=== PATIENT | female | born 1945 | race Caucasian/White ===

== ENCOUNTER 2020-09-26 15:16 | Inpatient (IN) ==
[2020-09-26 16:01] LABS: Basophils % 0.3 %; Eosinophils # 0.1 K/mcL (0.0-0.6); Hematocrit 42.9 % (35.3-44.9); Hemoglobin 12.7 g/dL (11.5-15.4); Immature Granulocytes % 0.2 % (0-4); Lymphocytes # 0.7 K/mcL (0.6-4.6); Lymphocytes % 12.1 %; Mean Corpuscular HGB Conc 29.6 g/dL (31.6-35.5); Mean Corpuscular Hemoglobin 28.3 pg (28.0-33.3); Mean Corpuscular Volume 95.5 fL (83.0-100.0); Mean Platelet Volume 11.1 fL (9.4-12.4); Monocytes # 0.6 K/mcL (0.0-1.3); Neutrophils # 4.8 K/mcL (1.6-8.9); Platelet Count 148 K/mcL (140-400); Red Blood Count 4.49 M/mcL (3.82-4.97); Red Cell Distribution Width 13.5 % (11.5-14.5); Segmented Neutrophils % 77.4 %; White Blood Count 6.1 K/mcL (4.3-11.1)
[2020-09-26 16:24] LABS: Clarity,Urine Clear (Clear); Color,Urine Orange (Yellow)
[2020-09-26 16:26] LABS: Calcium 9.1 mg/dL (8.6-10.3); Chloride 89 mEq/L (98-107); Glucose 257 mg/dL (70-105); Potassium 4.2 mEq/L (3.5-5.1); Sodium 139 mEq/L (136-145)
[2020-09-26 16:26] LABS: Bacteria,Urine Few per hpf (None-Few); Squamous Epithelial Cell,Urine Few per hpf (None-Few); WBC,Urine 0-3 per hpf (0-3)
[2020-09-26 16:27] LABS: Carbon Dioxide > 45 mEq/L (23-29)
[2020-09-26 16:28] LABS: Troponin I 0.07 ng/mL (< 0.04)
[2020-09-26 16:41] LABS: BUN/Creatinine Ratio 24 (6-26); Blood Urea Nitrogen 16 mg/dL (8-23); Osmolality,Calculated 298 (280-300); eGFR For African Americans > 60 (> 60); eGFR For Non-African Americans > 60 (> 60)
[2020-09-26] MEDS ORDERED: Furosemide 40 MG/4 ML VIAL IVP ONE (16:46)
[2020-09-26] MEDS ORDERED: Aspirin 81 MG TAB.CHEW PO ONE (16:46)
[2020-09-26] MEDS ORDERED: Ondansetron 4 MG/2 ML VIAL IVP PRN (17:35)
[2020-09-26] MEDS ORDERED: Naloxone 0.4 MG/ML INJ IVP PRN (17:35)
[2020-09-26] MEDS ORDERED: D5% in Water 1,000 ML IVC PRN (18:23)
[2020-09-26] MEDS ORDERED: Dextrose Gel 15 GM/37.5 ML TUBE PO PRN ×2 (18:23)
[2020-09-26] MEDS ORDERED: *HR* Dextrose 50 % in Water (Vial) 50 ML VIAL IVP PRN (18:23)
[2020-09-26 18:33] LABS: Adenovirus Not Detected (Not Detect); Bordetella Pertussis Not Detected (Not Detect); Chlamydophila pneumoniae Not Detected (Not Detect); Coronavirus 229E Not Detected (Not Detect); Coronavirus HKU1 Not Detected (Not Detect); Coronavirus NL63 Not Detected (Not Detect); Coronavirus OC43 Not Detected (Not Detect); Human Metapneumovirus Not Detected (Not Detect); Human Rhinovirus/Enterovirus Not Detected (Not Detect); Influenza A Subtype 2009 H1 Not Detected (Not Detect); Influenza B Not Detected (Not Detect); Mycoplasma pneumoniae Not Detected (Not Detect); Parainfluenza Virus 1 Not Detected (Not Detect); Parainfluenza Virus 2 Not Detected (Not Detect); Parainfluenza Virus 3 Not Detected (Not Detect); Parainfluenza Virus 4 Not Detected (Not Detect); Respiratory Syncytial Virus Not Detected (Not Detect); SARS-CoV-2 Not Detected (Not Detect)
[2020-09-26] MEDS ORDERED: Perflutren Lipid Microsphere 1.3 ML in 0.9 % Sodium Chloride 8.7 ML IVP PRN (18:34)
[2020-09-26 19:09] LABS: VBG HCO3 61 mEq/L (21-27); VBG PCO2 75 mmHg (41-51); VBG PH 7.52 pH Units (7.32-7.42); VBG PO2 171 mmHg (25-50)
[2020-09-26] MEDS ORDERED: acetaZOLAMIDE 250 MG in Water for inj. (sterile) 2.5 ML IVP ONE (19:11)
[2020-09-26] MEDS: Ipratropium/Albuterol Neb 3 ML IH SCH ×2 (19:52→20:00)
[2020-09-26] MEDS: Budesonide/Formoterol 160/4.5 1 PUFF INH IH SCH (19:53)
[2020-09-26] MEDS: Insulin LISPRO 300 UNITS/3 ML VIAL SUBQ SCH (20:32)
[2020-09-26] MEDS: *HR* Heparin 5,000 UNIT/ML VIAL SQ SCH (20:34)
[2020-09-26] MEDS: cefTRIAXone 1,000 MG in Water for inj. (sterile) 10 ML IVP SCH (20:34)
[2020-09-26] MEDS: Furosemide 40 MG/4 ML VIAL IVP SCH (20:39)
[2020-09-26 20:59] LABS: ABG Base Excess 26 mEq/L (-2 to 3); ABG HCO3 58 mEq/L (21-27); ABG Oxygen Saturation 82 % (95-98); ABG PCO2 97 mmHg (35-45); ABG PH 7.38 pH Units (7.32-7.45); ABG PO2 52 mmHg (85-104); ABG TCO2 > 50 mEq/L (20-26)
[2020-09-26 21:55] LABS: Estimated Average Glucose 206 mg/dl; Hemoglobin A1C 8.8 %
[2020-09-27] MEDS: Ipratropium/Albuterol Neb 3 ML IH SCH ×7 (00:09→23:06)
[2020-09-27 03:07] LABS: Basophils % 0.3 %; Eosinophils # 0.1 K/mcL (0.0-0.6); Eosinophils % 1.5 %; Hematocrit 42.9 % (35.3-44.9); Hemoglobin 12.7 g/dL (11.5-15.4); Immature Granulocytes % 0.1 % (0-4); Lymphocytes # 1.1 K/mcL (0.6-4.6); Lymphocytes % 15.5 %; Mean Corpuscular HGB Conc 29.6 g/dL (31.6-35.5); Mean Corpuscular Hemoglobin 27.9 pg (28.0-33.3); Mean Corpuscular Volume 94.1 fL (83.0-100.0); Mean Platelet Volume 11.3 fL (9.4-12.4); Monocytes # 0.7 K/mcL (0.0-1.3); Monocytes % 10.8 %; Neutrophils # 4.9 K/mcL (1.6-8.9); Platelet Count 177 K/mcL (140-400); Red Blood Count 4.56 M/mcL (3.82-4.97); Red Cell Distribution Width 13.3 % (11.5-14.5); Segmented Neutrophils % 71.8 %; White Blood Count 6.8 K/mcL (4.3-11.1)
[2020-09-27 03:35] LABS: BUN/Creatinine Ratio 20 (6-26); Blood Urea Nitrogen 18 mg/dL (8-23); Calcium 9.3 mg/dL (8.6-10.3); Carbon Dioxide > 45 mEq/L (23-29); Chloride 83 mEq/L (98-107); Glucose 148 mg/dL (70-105); Magnesium 1.7 mg/dL (1.6-2.6); Osmolality,Calculated 299 (280-300); Phosphorous 3.4 mg/dL (2.7-4.5); Potassium 3.2 mEq/L (3.5-5.1); Sodium 142 mEq/L (136-145); eGFR For African Americans > 60 (> 60); eGFR For Non-African Americans > 60 (> 60)
[2020-09-27 05:18] LABS: ABG Base Excess 24 mEq/L (-2 to 3); ABG HCO3 56 mEq/L (21-27); ABG Oxygen Saturation 92 % (95-98); ABG PCO2 101 mmHg (35-45); ABG PH 7.36 pH Units (7.32-7.45); ABG PO2 73 mmHg (85-104); ABG TCO2 > 50 mEq/L (20-26); Blood Gas Modality BiLevel; Blood Gas Pressure Support 7 cm H2O
[2020-09-27] MEDS: *HR* Heparin 5,000 UNIT/ML VIAL SQ SCH ×2 (05:45→16:54)
[2020-09-27] MEDS: Budesonide/Formoterol 160/4.5 1 PUFF INH IH SCH ×2 (07:48→20:12)
[2020-09-27] MEDS: cefTRIAXone 1,000 MG in Water for inj. (sterile) 10 ML IVP SCH (08:11)
[2020-09-27] MEDS: Aspirin Enteric Coated 81 MG Tablet PO SCH (08:11)
[2020-09-27] MEDS: lisinopriL 10 MG TABLET PO SCH (08:11)
[2020-09-27] MEDS: Fenofibrate 54 MG TABLET PO SCH (08:11)
[2020-09-27] MEDS: Furosemide 40 MG/4 ML VIAL IVP SCH ×2 (08:12→20:54)
[2020-09-27] MEDS: Insulin LISPRO 300 UNITS/3 ML VIAL SUBQ SCH ×4 (08:25→20:53)
[2020-09-27] MEDS: Azithromycin 500 MG in 0.9 % Sodium Chloride 250 ML IVPB SCH (09:51)
[2020-09-27] MEDS: Haloperidol Lactate 5 MG/ML VIAL IVP PRN ×2 (16:54→23:32)
[2020-09-27] MEDS: MethylPREDNISolone 40 MG/ML VIAL IVP SCH (17:17)
[2020-09-27] MEDS ORDERED: *HR* Metoprolol 5 MG/5 ML VIAL IVP ONE (23:23)
[2020-09-27] MEDS: Levalbuterol Neb 1.25 MG/3 ML IH SCH (23:26)
[2020-09-28] MEDS: MethylPREDNISolone 40 MG/ML VIAL IVP SCH ×3 (00:32→15:06)
[2020-09-28] MEDS ORDERED: *HR* Metoprolol 5 MG/5 ML VIAL IVP ONE ×2 (02:34→04:24)
[2020-09-28] MEDS: Levalbuterol Neb 1.25 MG/3 ML IH SCH ×5 (03:44→20:19)
[2020-09-28 04:21] LABS: ABG Base Excess 12 mEq/L (-2 to 3); ABG HCO3 41 mEq/L (21-27); ABG Oxygen Saturation 97 % (95-98); ABG PCO2 70 mmHg (35-45); ABG PH 7.38 pH Units (7.32-7.45); ABG PO2 94 mmHg (85-104); ABG TCO2 43 mEq/L (20-26)
[2020-09-28] MEDS ORDERED: 0.9 % Sodium Chloride 250 ML IV ONE ×2 (04:42→05:00)
[2020-09-28] MEDS: *HR* Heparin 5,000 UNIT/ML VIAL SQ SCH (04:45)
[2020-09-28] MEDS ORDERED: 0.9 % Sodium Chloride 250 ML ONE (05:00)
[2020-09-28] MEDS ORDERED: *HR* Metoprolol 5 MG/5 ML VIAL IVP PRN (06:00)
[2020-09-28 06:41] LABS: Basophils % 0.3 %; Hematocrit 46.9 % (35.3-44.9); Immature Granulocytes % 0.3 % (0-4); Lymphocytes # 0.2 K/mcL (0.6-4.6); Lymphocytes % 3.3 %; Mean Corpuscular HGB Conc 30.5 g/dL (31.6-35.5); Mean Corpuscular Hemoglobin 27.9 pg (28.0-33.3); Mean Corpuscular Volume 91.6 fL (83.0-100.0); Mean Platelet Volume 11.4 fL (9.4-12.4); Monocytes # 0.1 K/mcL (0.0-1.3); Monocytes % 0.7 %; Neutrophils # 6.6 K/mcL (1.6-8.9); Platelet Count 190 K/mcL (140-400); Red Blood Count 5.12 M/mcL (3.82-4.97); Red Cell Distribution Width 13.4 % (11.5-14.5); Segmented Neutrophils % 95.4 %; White Blood Count 6.9 K/mcL (4.3-11.1)
[2020-09-28 06:43] LABS: Hemoglobin 14.3 g/dL (11.5-15.4)
[2020-09-28 06:52] LABS: Calcium 8.9 mg/dL (8.6-10.3); Magnesium 1.7 mg/dL (1.6-2.6)
[2020-09-28] MEDS ORDERED: *HR* Heparin 5,000 UNIT/ML VIAL IVP PRN ×4 (07:49→19:03)
[2020-09-28] MEDS ORDERED: *HR* Heparin 5,000 UNIT/ML VIAL IVP ONE ×2 (07:49→19:03)
[2020-09-28] MEDS ORDERED: 0.9 % Sodium Chloride 250 ML IVC ONE (07:51)
[2020-09-28] MEDS: cefTRIAXone 1,000 MG in Water for inj. (sterile) 10 ML IVP SCH (07:54)
[2020-09-28] MEDS: Azithromycin 500 MG in 0.9 % Sodium Chloride 250 ML IVPB SCH (07:55)
[2020-09-28] MEDS: Aspirin Enteric Coated 81 MG Tablet PO SCH (07:56)
[2020-09-28] MEDS: lisinopriL 10 MG TABLET PO SCH (07:57)
[2020-09-28] MEDS: Fenofibrate 54 MG TABLET PO SCH (07:57)
[2020-09-28] MEDS ORDERED: Heparin 25,000UNIT/250ML 1/2NS 25,000 UNIT/250 ML IV.SOLN IVC SCH ×2 (08:00→19:15)
[2020-09-28] MEDS ORDERED: 0.9 % Sodium Chloride 1,000 ML IVC ONE ×2 (08:26→08:58)
[2020-09-28] MEDS ORDERED: Amiodarone Premix 360 MG/200 ML BAG IVC ONE (08:27)
[2020-09-28] MEDS ORDERED: Amiodarone Premix 150 MG/100 ML BAG IVPB ONE (08:27)
[2020-09-28] MEDS ORDERED: Isovue-370 500 ML BOTTLE IVP ONE ×2 (08:32→12:51)
[2020-09-28] MEDS: Norepinephrine 4 MG/254 ML IV.SOLN IVC SCH (09:01)
[2020-09-28 09:08] LABS: ABG Base Excess -10 mEq/L (-2 to 3); ABG HCO3 15 mEq/L (21-27); ABG Oxygen Saturation 99 % (95-98); ABG PCO2 28 mmHg (35-45); ABG PH 7.33 pH Units (7.32-7.45); ABG PO2 123 mmHg (85-104); ABG TCO2 16 mEq/L (20-26); Blood Gas VT 400 cc
[2020-09-28] MEDS ORDERED: Perflutren Lipid Microsphere 1.3 ML in 0.9 % Sodium Chloride 8.7 ML IVP PRN (09:26)
[2020-09-28 09:52] LABS: Hemoglobin 13.4 g/dL (11.5-15.4); Mean Corpuscular HGB Conc 30.5 g/dL (31.6-35.5); Mean Corpuscular Hemoglobin 28.1 pg (28.0-33.3); Mean Corpuscular Volume 92.2 fL (83.0-100.0); Mean Platelet Volume 11.6 fL (9.4-12.4); Platelet Count 157 K/mcL (140-400); Red Blood Count 4.77 M/mcL (3.82-4.97); Red Cell Distribution Width 13.5 % (11.5-14.5)
[2020-09-28 09:55] LABS: INR 1.1; Prothrombin Time 12.3 Seconds (9.4-12.1)
[2020-09-28 10:02] LABS: Heparin anti-factor XA UFH 1.6 IU/mL (0.30-0.70)
[2020-09-28] MEDS: Metoprolol XL (24 HR) Succ 50 MG TAB.ER.24H PO SCH ×2 (11:12→20:26)
[2020-09-28] MEDS: Insulin LISPRO 300 UNITS/3 ML VIAL SUBQ SCH ×4 (11:13→20:40)
[2020-09-28] MEDS ORDERED: Norepinephrine 4 MG/254 ML 0.9% NaCL IVC ONE (11:15)
[2020-09-28] MEDS ORDERED: *HR* LORazepam 2 MG/ML VIAL IVP ONE (12:23)
[2020-09-28] MEDS ORDERED: Water for inj. (sterile) 20 ML VIAL IV ONE (12:23)
[2020-09-28 13:43] LABS: Calcium 8.3 mg/dL (8.6-10.3); Potassium 4.2 mEq/L (3.5-5.1)
[2020-09-28 15:03] LABS: ABG Base Excess 13 mEq/L (-2 to 3); ABG HCO3 45 mEq/L (21-27); ABG Oxygen Saturation 94 % (95-98); ABG PCO2 98 mmHg (35-45); ABG PH 7.27 pH Units (7.32-7.45); ABG PO2 88 mmHg (85-104); ABG TCO2 48 mEq/L (20-26)
[2020-09-28] MEDS: Amiodarone Premix 360 MG/200 ML BAG IVC SCH (15:05)
[2020-09-28 16:33] LABS: ABG Base Excess 13 mEq/L (-2 to 3); ABG HCO3 44 mEq/L (21-27); ABG Oxygen Saturation 94 % (95-98); ABG PCO2 91 mmHg (35-45); ABG PO2 82 mmHg (85-104); ABG TCO2 47 mEq/L (20-26)
[2020-09-28 20:30] LABS: Hematocrit 40.8 % (35.3-44.9); Hemoglobin 12.3 g/dL (11.5-15.4); Mean Corpuscular HGB Conc 30.1 g/dL (31.6-35.5); Mean Corpuscular Hemoglobin 27.8 pg (28.0-33.3); Mean Corpuscular Volume 92.1 fL (83.0-100.0); Mean Platelet Volume 11.2 fL (9.4-12.4); Platelet Count 215 K/mcL (140-400); Red Blood Count 4.43 M/mcL (3.82-4.97); Red Cell Distribution Width 13.7 % (11.5-14.5)
[2020-09-28 20:34] LABS: White Blood Count 9.2 K/mcL (4.3-11.1)
[2020-09-28 20:39] LABS: Heparin anti-factor XA UFH 0.73 IU/mL (0.30-0.70)
[2020-09-28 20:40] LABS: Prothrombin Time 12.1 Seconds (9.4-12.1)
[2020-09-29] MEDS: Levalbuterol Neb 1.25 MG/3 ML IH SCH ×6 (00:09→20:24)
[2020-09-29] MEDS: MethylPREDNISolone 40 MG/ML VIAL IVP SCH ×4 (00:13→23:28)
[2020-09-29] MEDS: Amiodarone Premix 360 MG/200 ML BAG IVC SCH ×2 (02:27→13:45)
[2020-09-29 04:13] LABS: Basophils % 0.1 %; Hematocrit 39.6 % (35.3-44.9); Hemoglobin 11.9 g/dL (11.5-15.4); Immature Granulocytes % 0.5 % (0-4); Lymphocytes # 0.2 K/mcL (0.6-4.6); Lymphocytes % 2.4 %; Mean Corpuscular HGB Conc 30.1 g/dL (31.6-35.5); Mean Corpuscular Hemoglobin 28.4 pg (28.0-33.3); Mean Corpuscular Volume 94.5 fL (83.0-100.0); Monocytes # 0.2 K/mcL (0.0-1.3); Monocytes % 1.9 %; Neutrophils # 8.4 K/mcL (1.6-8.9); Platelet Count 195 K/mcL (140-400); Red Blood Count 4.19 M/mcL (3.82-4.97); Segmented Neutrophils % 95.1 %; White Blood Count 8.9 K/mcL (4.3-11.1)
[2020-09-29 04:35] LABS: Calcium 8.1 mg/dL (8.6-10.3); Magnesium 1.9 mg/dL (1.6-2.6); Phosphorous 6.9 mg/dL (2.7-4.5); Potassium 4.6 mEq/L (3.5-5.1)
[2020-09-29 04:41] LABS: ABG Base Excess 13 mEq/L (-2 to 3); ABG HCO3 46 mEq/L (21-27); ABG Oxygen Saturation 95 % (95-98); ABG PCO2 114 mmHg (35-45); ABG PH 7.21 pH Units (7.32-7.45); ABG PO2 96 mmHg (85-104); ABG TCO2 50 mEq/L (20-26); Blood Gas VT 480 cc
[2020-09-29] MEDS: FentaNYL (PF) 1,000 MCG/100 ML IV.SOLN IVC SCH ×3 (07:03→18:56)
[2020-09-29] MEDS: Azithromycin 500 MG in 0.9 % Sodium Chloride 250 ML IVPB SCH (08:14)
[2020-09-29] MEDS: Fenofibrate 54 MG TABLET PO SCH (08:15)
[2020-09-29] MEDS: cefTRIAXone 1,000 MG in Water for inj. (sterile) 10 ML IVP SCH (08:15)
[2020-09-29] MEDS: Metoprolol XL (24 HR) Succ 50 MG TAB.ER.24H PO SCH ×2 (08:16→19:32)
[2020-09-29] MEDS: Aspirin Enteric Coated 81 MG Tablet PO SCH (08:16)
[2020-09-29] MEDS: lisinopriL 10 MG TABLET PO SCH (08:16)
[2020-09-29] MEDS: Insulin LISPRO 300 UNITS/3 ML VIAL SUBQ SCH ×5 (08:23→23:42)
[2020-09-29] MEDS ORDERED: Artificial Tears SOLN 15 ML BOTTLE BOTH EYES PRN ×2 (08:46→10:33)
[2020-09-29] MEDS ORDERED: Insulin LISPRO 300 UNITS/3 ML VIAL SUBQ SCH ×3 (08:46→21:00)
[2020-09-29 09:00] LABS: ABG Base Excess 11 mEq/L (-2 to 3); ABG HCO3 34 mEq/L (21-27); ABG Oxygen Saturation 100 % (95-98); ABG PCO2 39 mmHg (35-45); ABG PH 7.55 pH Units (7.32-7.45); ABG PO2 431 mmHg (85-104); ABG TCO2 36 mEq/L (20-26); Blood Gas Modality ASSIST CONTROL; Blood Gas VT 480 cc
[2020-09-29] MEDS ORDERED: *HR* Midazolam HCl 5 MG/5 ML VIAL IVP ONE ×2 (11:17→12:45)
[2020-09-29] MEDS ORDERED: *HR* Etomidate 20 MG/10 ML AMPUL IVP ONE ×2 (11:17→12:45)
[2020-09-29] MEDS: Chlorhexidine Rinse 15 ML MOUTHWASH MM SCH ×3 (11:40→19:57)
[2020-09-29] MEDS: Pantoprazole 40 MG VIAL IVP SCH ×2 (11:40→19:57)
[2020-09-29] MEDS: Artificial Tears SOLN 15 ML BOTTLE BOTH EYES SCH ×8 (12:17→23:33)
[2020-09-29] MEDS: Norepinephrine 4 MG/254 ML IV.SOLN IVC SCH ×3 (14:27→23:26)
[2020-09-29] MEDS: Insulin DETEMIR 100 UNIT/ML X5UNITS SUBQ SCH (19:59)
[2020-09-29 23:45] LABS: Bilirubin,Urine Negative (Negative); Blood,Urine Negative (Negative); Clarity,Urine Clear (Clear); Color,Urine Light-Yellow (Yellow); Glucose,Urine (UA) Normal (Normal); Ketones,Urine Negative (Negative); Leukocyte Esterase,Urine Negative (Negative); Nitrite,Urine Negative (Negative); Protein,Urine Trace mg/dL (Neg-Trace); Specific Gravity,Urine > 1.030 (1.010-1.025); Urobilinogen,Urine Normal (Normal)
[2020-09-30] MEDS: Levalbuterol Neb 1.25 MG/3 ML IH SCH ×6 (00:22→20:08)
[2020-09-30] MEDS: FentaNYL (PF) 1,000 MCG/100 ML IV.SOLN IVC SCH ×4 (02:00→23:11)
[2020-09-30] MEDS: Amiodarone Premix 360 MG/200 ML BAG IVC SCH ×2 (02:34→14:35)
[2020-09-30] MEDS: Norepinephrine 4 MG/254 ML IV.SOLN IVC SCH ×3 (03:25→14:25)
[2020-09-30] MEDS: Artificial Tears SOLN 15 ML BOTTLE BOTH EYES SCH ×8 (03:35→23:34)
[2020-09-30] MEDS: Insulin LISPRO 300 UNITS/3 ML VIAL SUBQ SCH ×6 (03:59→23:45)
[2020-09-30 04:10] LABS: Calcium 8.6 mg/dL (8.6-10.3); Phosphorous 3.6 mg/dL (2.7-4.5); Potassium 4.1 mEq/L (3.5-5.1)
[2020-09-30 04:11] LABS: Basophils % 0.1 %; Hematocrit 36.7 % (35.3-44.9); Hemoglobin 11.2 g/dL (11.5-15.4); Immature Granulocytes % 0.4 % (0-4); Lymphocytes # 0.3 K/mcL (0.6-4.6); Lymphocytes % 2.2 %; Mean Corpuscular HGB Conc 30.5 g/dL (31.6-35.5); Mean Corpuscular Hemoglobin 27.7 pg (28.0-33.3); Mean Corpuscular Volume 90.6 fL (83.0-100.0); Mean Platelet Volume 11.6 fL (9.4-12.4); Monocytes # 0.3 K/mcL (0.0-1.3); Monocytes % 2.3 %; Neutrophils # 11.8 K/mcL (1.6-8.9); Platelet Count 228 K/mcL (140-400); Red Blood Count 4.05 M/mcL (3.82-4.97); White Blood Count 12.4 K/mcL (4.3-11.1)
[2020-09-30 04:36] LABS: ABG Base Excess 11 mEq/L (-2 to 3); ABG HCO3 40 mEq/L (21-27); ABG Oxygen Saturation 97 % (95-98); ABG PCO2 74 mmHg (35-45); ABG PH 7.34 pH Units (7.32-7.45); ABG PO2 96 mmHg (85-104); ABG TCO2 42 mEq/L (20-26); Blood Gas VT 350 cc
[2020-09-30] MEDS: Azithromycin 500 MG in 0.9 % Sodium Chloride 250 ML IVPB SCH (08:01)
[2020-09-30] MEDS: cefTRIAXone 1,000 MG in Water for inj. (sterile) 10 ML IVP SCH (08:02)
[2020-09-30] MEDS: Fenofibrate 54 MG TABLET PO SCH (08:03)
[2020-09-30] MEDS: Aspirin Enteric Coated 81 MG Tablet PO SCH (08:03)
[2020-09-30] MEDS: MethylPREDNISolone 40 MG/ML VIAL IVP SCH ×2 (08:03→17:32)
[2020-09-30] MEDS: Chlorhexidine Rinse 15 ML MOUTHWASH MM SCH ×3 (08:03→19:46)
[2020-09-30] MEDS: Pantoprazole 40 MG VIAL IVP SCH ×2 (08:03→19:46)
[2020-09-30] MEDS: Metoprolol XL (24 HR) Succ 50 MG TAB.ER.24H PO SCH (08:05)
[2020-09-30] MEDS: lisinopriL 10 MG TABLET PO SCH (08:05)
[2020-09-30] MEDS: Insulin DETEMIR 100 UNIT/ML X5UNITS SUBQ SCH (19:56)
[2020-10-01] MEDS: Levalbuterol Neb 1.25 MG/3 ML IH SCH ×3 (00:26→07:23)
[2020-10-01] MEDS: Amiodarone Premix 360 MG/200 ML BAG IVC SCH ×2 (02:37→12:09)
[2020-10-01 03:40] LABS: Basophils % 0.1 %; Eosinophils % 0.3 %; Hematocrit 34.7 % (35.3-44.9); Hemoglobin 10.5 g/dL (11.5-15.4); Immature Granulocytes % 0.4 % (0-4); Lymphocytes # 0.9 K/mcL (0.6-4.6); Lymphocytes % 8.9 %; Mean Corpuscular HGB Conc 30.3 g/dL (31.6-35.5); Mean Corpuscular Hemoglobin 27.9 pg (28.0-33.3); Mean Platelet Volume 11.1 fL (9.4-12.4); Monocytes # 1.1 K/mcL (0.0-1.3); Monocytes % 10.7 %; Neutrophils # 7.9 K/mcL (1.6-8.9); Platelet Count 156 K/mcL (140-400); Red Blood Count 3.77 M/mcL (3.82-4.97); Red Cell Distribution Width 14.5 % (11.5-14.5); Segmented Neutrophils % 79.6 %; White Blood Count 9.9 K/mcL (4.3-11.1)
[2020-10-01] MEDS: Insulin LISPRO 300 UNITS/3 ML VIAL SUBQ SCH ×6 (03:46→23:22)
[2020-10-01] MEDS: Artificial Tears SOLN 15 ML BOTTLE BOTH EYES SCH ×6 (03:47→23:21)
[2020-10-01 04:14] LABS: ABG Base Excess 13 mEq/L (-2 to 3); ABG HCO3 41 mEq/L (21-27); ABG Oxygen Saturation 97 % (95-98); ABG PCO2 72 mmHg (35-45); ABG PH 7.36 pH Units (7.32-7.45); ABG PO2 101 mmHg (85-104); ABG TCO2 43 mEq/L (20-26); Blood Gas VT 350 cc
[2020-10-01 04:40] LABS: BUN/Creatinine Ratio 47 (6-26); Blood Urea Nitrogen 43 mg/dL (8-23); Calcium 8.6 mg/dL (8.6-10.3); Carbon Dioxide 40 mEq/L (23-29); Chloride 99 mEq/L (98-107); Glucose 137 mg/dL (70-105); Magnesium 2.1 mg/dL (1.6-2.6); Osmolality,Calculated 311 (280-300); Phosphorous 2.3 mg/dL (2.7-4.5); Sodium 144 mEq/L (136-145); eGFR For African Americans > 60 (> 60); eGFR For Non-African Americans 59 (> 60)
[2020-10-01] MEDS: Norepinephrine 4 MG/254 ML IV.SOLN IVC SCH ×2 (05:56→20:53)
[2020-10-01] MEDS: FentaNYL (PF) 1,000 MCG/100 ML IV.SOLN IVC SCH ×2 (05:57→12:46)
[2020-10-01] MEDS: MethylPREDNISolone 40 MG/ML VIAL IVP SCH ×2 (06:26→17:30)
[2020-10-01] MEDS: Chlorhexidine Rinse 15 ML MOUTHWASH MM SCH ×2 (07:35→20:01)
[2020-10-01] MEDS: Azithromycin 500 MG in 0.9 % Sodium Chloride 250 ML IVPB SCH (07:36)
[2020-10-01] MEDS: Aspirin Enteric Coated 81 MG Tablet PO SCH (07:36)
[2020-10-01] MEDS: cefTRIAXone 1,000 MG in Water for inj. (sterile) 10 ML IVP SCH (07:36)
[2020-10-01] MEDS: Pantoprazole 40 MG VIAL IVP SCH ×2 (07:36→20:01)
[2020-10-01] MEDS: *HR* Amiodarone 200 MG TABLET GTUBE SCH (20:01)
[2020-10-01] MEDS: Docusate Oral Soln 100 MG/10 ML UDC GTUBE SCH (20:01)
[2020-10-01] MEDS: Insulin DETEMIR 100 UNIT/ML X5UNITS SUBQ SCH (20:14)
[2020-10-02] MEDS: FentaNYL (PF) 1,000 MCG/100 ML IV.SOLN IVC SCH (02:47)
[2020-10-02] MEDS: Artificial Tears SOLN 15 ML BOTTLE BOTH EYES SCH ×6 (03:35→23:20)
[2020-10-02] MEDS: Insulin LISPRO 300 UNITS/3 ML VIAL SUBQ SCH ×5 (03:38→22:28)
[2020-10-02 03:41] LABS: ABG Base Excess 12 mEq/L (-2 to 3); ABG HCO3 40 mEq/L (21-27); ABG Oxygen Saturation 94 % (95-98); ABG PCO2 75 mmHg (35-45); ABG PH 7.34 pH Units (7.32-7.45); ABG PO2 77 mmHg (85-104); ABG TCO2 42 mEq/L (20-26); Blood Gas Modality ASSIST CONTROL; Blood Gas VT 350 cc
[2020-10-02] MEDS: MethylPREDNISolone 40 MG/ML VIAL IVP SCH ×2 (05:39→18:39)
[2020-10-02 06:25] LABS: Hematocrit 33.9 % (35.3-44.9); Hemoglobin 10.1 g/dL (11.5-15.4); Immature Granulocytes % 0.3 % (0-4); Lymphocytes # 0.4 K/mcL (0.6-4.6); Lymphocytes % 4.9 %; Mean Corpuscular HGB Conc 29.8 g/dL (31.6-35.5); Mean Corpuscular Hemoglobin 28.5 pg (28.0-33.3); Mean Corpuscular Volume 95.8 fL (83.0-100.0); Mean Platelet Volume 12.8 fL (9.4-12.4); Monocytes # 0.6 K/mcL (0.0-1.3); Monocytes % 7.9 %; Neutrophils # 6.2 K/mcL (1.6-8.9); Platelet Count 123 K/mcL (140-400); Red Blood Count 3.54 M/mcL (3.82-4.97); Red Cell Distribution Width 14.3 % (11.5-14.5); Segmented Neutrophils % 86.9 %; White Blood Count 7.1 K/mcL (4.3-11.1)
[2020-10-02 06:32] LABS: BUN/Creatinine Ratio 49 (6-26); Blood Urea Nitrogen 39 mg/dL (8-23); Calcium 8.5 mg/dL (8.6-10.3); Carbon Dioxide 41 mEq/L (23-29); Chloride 98 mEq/L (98-107); Glucose 281 mg/dL (70-105); Magnesium 2.1 mg/dL (1.6-2.6); Osmolality,Calculated 314 (280-300); Sodium 142 mEq/L (136-145); eGFR For African Americans > 60 (> 60); eGFR For Non-African Americans > 60 (> 60)
[2020-10-02] MEDS: Chlorhexidine Rinse 15 ML MOUTHWASH MM SCH ×2 (07:51→22:18)
[2020-10-02] MEDS: cefTRIAXone 1,000 MG in Water for inj. (sterile) 10 ML IVP SCH (07:51)
[2020-10-02] MEDS: Docusate Oral Soln 100 MG/10 ML UDC GTUBE SCH ×2 (07:51→22:27)
[2020-10-02] MEDS: Pantoprazole 40 MG VIAL IVP SCH ×2 (07:51→22:24)
[2020-10-02] MEDS: Aspirin Enteric Coated 81 MG Tablet PO SCH (07:52)
[2020-10-02] MEDS: *HR* Amiodarone 200 MG TABLET GTUBE SCH ×2 (07:52→22:16)
[2020-10-02] MEDS ORDERED: Dexmedetomidine HCl 400 MCG/100 ML MLS IVC ONE (21:29)
[2020-10-02] MEDS: Dexmedetomidine HCl 400 MCG/100 ML MLS IVC SCH (21:35)
[2020-10-02] MEDS: Insulin DETEMIR 100 UNIT/ML X5UNITS SUBQ SCH (22:33)
[2020-10-03] MEDS: Insulin LISPRO 300 UNITS/3 ML VIAL SUBQ SCH ×7 (00:13→23:49)
[2020-10-03] MEDS: MethylPREDNISolone 40 MG/ML VIAL IVP SCH ×2 (06:39→16:42)
[2020-10-03] MEDS: *HR* Enoxaparin 40 MG/0.4 ML SYRINGE SQ SCH (06:41)
[2020-10-03 07:16] LABS: Hematocrit 32.7 % (35.3-44.9); Hemoglobin 9.8 g/dL (11.5-15.4); Mean Corpuscular Volume 95.3 fL (83.0-100.0); Red Blood Count 3.43 M/mcL (3.82-4.97); White Blood Count 5.6 K/mcL (4.3-11.1)
[2020-10-03 07:17] LABS: Immature Granulocytes % 0.4 % (0-4); Lymphocytes # 0.3 K/mcL (0.6-4.6); Mean Corpuscular Hemoglobin 28.6 pg (28.0-33.3); Mean Platelet Volume 11.7 fL (9.4-12.4); Monocytes # 0.6 K/mcL (0.0-1.3); Monocytes % 10.1 %; Neutrophils # 4.7 K/mcL (1.6-8.9); Platelet Count 116 K/mcL (140-400); Red Cell Distribution Width 48.2 % (11.5-14.5); Segmented Neutrophils % 84.5 %
[2020-10-03 09:33] LABS: BUN/Creatinine Ratio 47 (6-26); Blood Urea Nitrogen 32 mg/dL (8-23); Calcium 8.9 mg/dL (8.6-10.3); Carbon Dioxide 43 mEq/L (23-29); Chloride 99 mEq/L (98-107); Glucose 78 mg/dL (70-105); Magnesium 2.1 mg/dL (1.6-2.6); Osmolality,Calculated 302 (280-300); Phosphorous 2.7 mg/dL (2.7-4.5); Potassium 4.5 mEq/L (3.5-5.1); Sodium 143 mEq/L (136-145); eGFR For African Americans > 60 (> 60); eGFR For Non-African Americans > 60 (> 60)
[2020-10-03] MEDS: Docusate Oral Soln 100 MG/10 ML UDC GTUBE SCH ×2 (10:19→21:05)
[2020-10-03] MEDS: Chlorhexidine Rinse 15 ML MOUTHWASH MM SCH ×2 (10:19→21:04)
[2020-10-03] MEDS: Aspirin 81 MG TAB.CHEW PO SCH (10:19)
[2020-10-03] MEDS: *HR* Amiodarone 200 MG TABLET GTUBE SCH ×2 (10:19→21:08)
[2020-10-03] MEDS: Pantoprazole 40 MG VIAL IVP SCH ×2 (10:19→21:06)
[2020-10-03] MEDS: Furosemide 40 MG/4 ML VIAL IVP SCH ×2 (10:29→16:41)
[2020-10-03] MEDS: Nicotine 21 MG PATCH.TD24 TD SCH (16:41)
[2020-10-03] MEDS: Dexmedetomidine HCl 400 MCG/100 ML MLS IVC SCH (21:16)
[2020-10-03] MEDS: Insulin DETEMIR 100 UNIT/ML X5UNITS SUBQ SCH (21:25)
[2020-10-04] MEDS ORDERED: 0.9 % Sodium Chloride 250 ML ONE (00:24)
[2020-10-04] MEDS: Dexmedetomidine HCl 400 MCG/100 ML MLS IVC SCH (00:25)
[2020-10-04] MEDS: Insulin LISPRO 300 UNITS/3 ML VIAL SUBQ SCH ×5 (03:34→19:27)
[2020-10-04 04:36] LABS: Eosinophils % 0.1 %; Hematocrit 33.9 % (35.3-44.9); Hemoglobin 10.6 g/dL (11.5-15.4); Immature Granulocytes % 0.4 % (0-4); Lymphocytes # 0.5 K/mcL (0.6-4.6); Lymphocytes % 6.1 %; Mean Corpuscular HGB Conc 31.3 g/dL (31.6-35.5); Mean Corpuscular Hemoglobin 28.1 pg (28.0-33.3); Mean Corpuscular Volume 89.9 fL (83.0-100.0); Mean Platelet Volume 12.6 fL (9.4-12.4); Monocytes # 0.9 K/mcL (0.0-1.3); Neutrophils # 6.9 K/mcL (1.6-8.9); Platelet Count 117 K/mcL (140-400); Red Blood Count 3.77 M/mcL (3.82-4.97); Red Cell Distribution Width 13.6 % (11.5-14.5); Segmented Neutrophils % 82.4 %; White Blood Count 8.4 K/mcL (4.3-11.1)
[2020-10-04 05:09] LABS: BUN/Creatinine Ratio 42 (6-26); Blood Urea Nitrogen 36 mg/dL (8-23); Calcium 8.9 mg/dL (8.6-10.3); Carbon Dioxide > 45 mEq/L (23-29); Chloride 91 mEq/L (98-107); Glucose 129 mg/dL (70-105); Osmolality,Calculated 302 (280-300); Sodium 141 mEq/L (136-145); eGFR For African Americans > 60 (> 60); eGFR For Non-African Americans > 60 (> 60)
[2020-10-04] MEDS: MethylPREDNISolone 40 MG/ML VIAL IVP SCH (05:53)
[2020-10-04] MEDS: *HR* Enoxaparin 40 MG/0.4 ML SYRINGE SQ SCH (05:53)
[2020-10-04] MEDS: *HR* Amiodarone 200 MG TABLET GTUBE SCH (08:06)
[2020-10-04] MEDS: Furosemide 40 MG/4 ML VIAL IVP SCH ×2 (08:06→17:45)
[2020-10-04] MEDS: Pantoprazole 40 MG VIAL IVP SCH (08:07)
[2020-10-04] MEDS: Aspirin 81 MG TAB.CHEW PO SCH (08:07)
[2020-10-04] MEDS: Docusate Oral Soln 100 MG/10 ML UDC GTUBE SCH ×2 (08:07→19:36)
[2020-10-04] MEDS: Nicotine 21 MG PATCH.TD24 TD SCH (08:07)
[2020-10-04] MEDS: Aspirin Enteric Coated 81 MG Tablet PO SCH (09:34)
[2020-10-04] MEDS: *HR* Amiodarone 200 MG TABLET PO SCH ×2 (09:34→19:30)
[2020-10-04] MEDS: Budesonide/Formoterol 160/4.5 1 PUFF INH IH SCH ×2 (11:31→19:44)
[2020-10-04] MEDS: Insulin DETEMIR 100 UNIT/ML X5UNITS SUBQ SCH (12:14)
[2020-10-04] MEDS: predniSONE 20 MG TABLET PO SCH (12:14)
[2020-10-05] MEDS: Insulin LISPRO 300 UNITS/3 ML VIAL SUBQ SCH ×6 (00:04→20:11)
[2020-10-05 03:21] LABS: Basophils % 0.1 %; Eosinophils % 0.1 %; Hematocrit 35.4 % (35.3-44.9); Hemoglobin 10.9 g/dL (11.5-15.4); Immature Granulocytes % 0.2 % (0-4); Lymphocytes # 0.6 K/mcL (0.6-4.6); Lymphocytes % 6.7 %; Mean Corpuscular HGB Conc 30.8 g/dL (31.6-35.5); Mean Corpuscular Hemoglobin 28.2 pg (28.0-33.3); Mean Corpuscular Volume 91.5 fL (83.0-100.0); Mean Platelet Volume 12.6 fL (9.4-12.4); Monocytes % 10.5 %; Neutrophils # 7.8 K/mcL (1.6-8.9); Platelet Count 149 K/mcL (140-400); Red Blood Count 3.87 M/mcL (3.82-4.97); Red Cell Distribution Width 13.6 % (11.5-14.5); Segmented Neutrophils % 82.4 %; White Blood Count 9.5 K/mcL (4.3-11.1)
[2020-10-05 04:01] LABS: BUN/Creatinine Ratio 41 (6-26); Blood Urea Nitrogen 38 mg/dL (8-23); Calcium 8.2 mg/dL (8.6-10.3); Carbon Dioxide > 45 mEq/L (23-29); Chloride 91 mEq/L (98-107); Glucose 158 mg/dL (70-105); Magnesium 1.9 mg/dL (1.6-2.6); Osmolality,Calculated 306 (280-300); Phosphorous 3.3 mg/dL (2.7-4.5); Potassium 3.6 mEq/L (3.5-5.1); Sodium 142 mEq/L (136-145); eGFR For African Americans > 60 (> 60); eGFR For Non-African Americans 59 (> 60)
[2020-10-05] MEDS: *HR* Enoxaparin 40 MG/0.4 ML SYRINGE SQ SCH (05:01)
[2020-10-05] MEDS ORDERED: Magnesium Sulfate 1 GM/102 ML PIGGYBACK IVPB ONE (05:27)
[2020-10-05] MEDS: Budesonide/Formoterol 160/4.5 1 PUFF INH IH SCH ×3 (08:11→22:49)
[2020-10-05] MEDS: Nicotine 21 MG PATCH.TD24 TD SCH (08:41)
[2020-10-05] MEDS: Furosemide 40 MG/4 ML VIAL IVP SCH (08:41)
[2020-10-05] MEDS: Aspirin 81 MG TAB.CHEW PO SCH (08:42)
[2020-10-05] MEDS: Aspirin Enteric Coated 81 MG Tablet PO SCH (08:42)
[2020-10-05] MEDS: *HR* Amiodarone 200 MG TABLET PO SCH ×2 (08:43→19:58)
[2020-10-05] MEDS: Docusate Oral Soln 100 MG/10 ML UDC GTUBE SCH (08:43)
[2020-10-05] MEDS: predniSONE 20 MG TABLET PO SCH (08:43)
[2020-10-05] MEDS: Insulin DETEMIR 100 UNIT/ML X5UNITS SUBQ SCH (09:24)
[2020-10-05] MEDS ORDERED: Dextrose Gel 15 GM/37.5 ML TUBE PO PRN ×2 (12:22)
[2020-10-05] MEDS ORDERED: Naloxone 0.4 MG/ML INJ IVP PRN (12:22)
[2020-10-05] MEDS ORDERED: Ondansetron 4 MG/2 ML VIAL IVP PRN (12:22)
[2020-10-05] MEDS ORDERED: D5% in Water 1,000 ML IVC PRN (12:22)
[2020-10-05] MEDS ORDERED: *HR* Dextrose 50 % in Water (Vial) 50 ML VIAL IVP PRN (12:22)
[2020-10-05] MEDS ORDERED: *HR* Metoprolol 5 MG/5 ML VIAL IVP PRN (12:22)
[2020-10-05] MEDS: Docusate Oral Soln 100 MG/10 ML UDC PO SCH (19:58)
[2020-10-06 03:16] LABS: VBG Ionized Calcium 1.06 mmol/L (1.15-1.35)
[2020-10-06 03:25] LABS: Basophils % 0.1 %; Eosinophils # 0.1 K/mcL (0.0-0.6); Eosinophils % 1.1 %; Hematocrit 37.3 % (35.3-44.9); Hemoglobin 11.6 g/dL (11.5-15.4); Immature Granulocytes % 0.3 % (0-4); Lymphocytes # 1.3 K/mcL (0.6-4.6); Lymphocytes % 12.4 %; Mean Corpuscular HGB Conc 31.1 g/dL (31.6-35.5); Mean Corpuscular Hemoglobin 28.3 pg (28.0-33.3); Mean Platelet Volume 12.4 fL (9.4-12.4); Monocytes # 1.1 K/mcL (0.0-1.3); Neutrophils # 8.2 K/mcL (1.6-8.9); Platelet Count 182 K/mcL (140-400); Red Cell Distribution Width 13.5 % (11.5-14.5); Segmented Neutrophils % 76.1 %; White Blood Count 10.8 K/mcL (4.3-11.1)
[2020-10-06 03:43] LABS: Alanine Aminotransferase 13 Units/L (7-52); Albumin 3.1 g/dL (3.5-5.7); Albumin/Globulin Ratio 1.2 (1.1-2.2); Alkaline Phosphatase 48 Units/L (34-104); Aspartate Amino Transferase 15 Units/L (13-39); BUN/Creatinine Ratio 37 (6-26); Bilirubin,Total 0.5 mg/dL (0.3-1.0); Blood Urea Nitrogen 32 mg/dL (8-23); Calcium 8.5 mg/dL (8.6-10.3); Carbon Dioxide > 45 mEq/L (23-29); Chloride 92 mEq/L (98-107); Globulin 2.5 g/dL (2.4-3.5); Glucose 83 mg/dL (70-105); Osmolality,Calculated 304 (280-300); Phosphorous 3.2 mg/dL (2.7-4.5); Potassium 3.2 mEq/L (3.5-5.1); Sodium 144 mEq/L (136-145); Total Protein 5.6 g/dL (6.4-8.9); eGFR For African Americans > 60 (> 60); eGFR For Non-African Americans > 60 (> 60)
[2020-10-06] MEDS: *HR* Enoxaparin 40 MG/0.4 ML SYRINGE SQ SCH (05:33)
[2020-10-06] MEDS: Budesonide/Formoterol 160/4.5 1 PUFF INH IH SCH ×2 (07:26→19:59)
[2020-10-06] MEDS: predniSONE 20 MG TABLET PO SCH (08:02)
[2020-10-06] MEDS: *HR* Amiodarone 200 MG TABLET PO SCH ×2 (08:02→19:35)
[2020-10-06] MEDS: Aspirin Enteric Coated 81 MG Tablet PO SCH (08:02)
[2020-10-06] MEDS: Nicotine 21 MG PATCH.TD24 TD SCH (08:03)
[2020-10-06] MEDS: Docusate Oral Soln 100 MG/10 ML UDC PO SCH ×2 (08:03→19:35)
[2020-10-06] MEDS: Insulin LISPRO 300 UNITS/3 ML VIAL SUBQ SCH ×4 (08:04→19:39)
[2020-10-06] MEDS: Insulin DETEMIR 100 UNIT/ML X5UNITS SUBQ SCH (08:04)
[2020-10-06] MEDS ORDERED: Furosemide 40 MG/4 ML VIAL IVP SCH (09:00)
[2020-10-07 04:30] LABS: VBG HCO3 49 mEq/L (21-27); VBG PCO2 87 mmHg (41-51); VBG PH 7.36 pH Units (7.32-7.42); VBG PO2 144 mmHg (25-50)
[2020-10-07 05:04] LABS: BUN/Creatinine Ratio 33 (6-26); Blood Urea Nitrogen 39 mg/dL (8-23); Calcium 8.2 mg/dL (8.6-10.3); Carbon Dioxide > 45 mEq/L (23-29); Chloride 94 mEq/L (98-107); Glucose 110 mg/dL (70-105); Magnesium 1.9 mg/dL (1.6-2.6); Osmolality,Calculated 306 (280-300); Potassium 3.8 mEq/L (3.5-5.1); Sodium 143 mEq/L (136-145); eGFR For African Americans 54 (> 60); eGFR For Non-African Americans 45 (> 60)
[2020-10-07] MEDS: *HR* Enoxaparin 40 MG/0.4 ML SYRINGE SQ SCH (05:54)
[2020-10-07] MEDS: Budesonide/Formoterol 160/4.5 1 PUFF INH IH SCH ×2 (07:27→19:52)
[2020-10-07] MEDS: Insulin LISPRO 300 UNITS/3 ML VIAL SUBQ SCH ×4 (08:11→20:23)
[2020-10-07] MEDS: Aspirin Enteric Coated 81 MG Tablet PO SCH (08:12)
[2020-10-07] MEDS: Nicotine 21 MG PATCH.TD24 TD SCH (08:12)
[2020-10-07] MEDS: Furosemide 20 MG TABLET PO SCH (08:12)
[2020-10-07] MEDS: predniSONE 20 MG TABLET PO SCH (08:12)
[2020-10-07] MEDS: *HR* Amiodarone 200 MG TABLET PO SCH ×2 (08:12→19:55)
[2020-10-07] MEDS: Docusate Oral Soln 100 MG/10 ML UDC PO SCH ×2 (08:12→19:55)
[2020-10-07] MEDS: Insulin DETEMIR 100 UNIT/ML X5UNITS SUBQ SCH (08:13)
[2020-10-07] MEDS: Ipratropium/Albuterol Neb 3 ML IH SCH ×5 (09:48→23:37)
[2020-10-07 13:19] LABS: VBG HCO3 45 mEq/L (21-27); VBG PCO2 88 mmHg (41-51); VBG PH 7.31 pH Units (7.32-7.42); VBG PO2 70 mmHg (25-50)
[2020-10-08 02:56] LABS: Hematocrit 35.1 % (35.3-44.9); Hemoglobin 10.2 g/dL (11.5-15.4); Mean Corpuscular HGB Conc 29.1 g/dL (31.6-35.5); Mean Corpuscular Hemoglobin 27.3 pg (28.0-33.3); Mean Corpuscular Volume 93.9 fL (83.0-100.0); Mean Platelet Volume 12.1 fL (9.4-12.4); Platelet Count 210 K/mcL (140-400); Red Blood Count 3.74 M/mcL (3.82-4.97); Red Cell Distribution Width 13.7 % (11.5-14.5); White Blood Count 10.9 K/mcL (4.3-11.1)
[2020-10-08 02:58] LABS: BUN/Creatinine Ratio 42 (6-26); Blood Urea Nitrogen 34 mg/dL (8-23); Calcium 8.6 mg/dL (8.6-10.3); Carbon Dioxide 42 mEq/L (23-29); Chloride 96 mEq/L (98-107); Glucose 81 mg/dL (70-105); Magnesium 1.5 mg/dL (1.6-2.6); Osmolality,Calculated 303 (280-300); Potassium 3.5 mEq/L (3.5-5.1); Sodium 143 mEq/L (136-145); eGFR For African Americans > 60 (> 60); eGFR For Non-African Americans > 60 (> 60)
[2020-10-08] MEDS: Ipratropium/Albuterol Neb 3 ML IH SCH ×6 (04:10→23:40)
[2020-10-08] MEDS: *HR* Enoxaparin 40 MG/0.4 ML SYRINGE SQ SCH (05:18)
[2020-10-08] MEDS: Budesonide/Formoterol 160/4.5 1 PUFF INH IH SCH ×2 (07:28→19:48)
[2020-10-08] MEDS: Furosemide 20 MG TABLET PO SCH (07:52)
[2020-10-08] MEDS: predniSONE 20 MG TABLET PO SCH (07:52)
[2020-10-08] MEDS: *HR* Amiodarone 200 MG TABLET PO SCH ×2 (07:52→20:09)
[2020-10-08] MEDS: Nicotine 21 MG PATCH.TD24 TD SCH (07:53)
[2020-10-08] MEDS: Insulin DETEMIR 100 UNIT/ML X5UNITS SUBQ SCH (07:53)
[2020-10-08] MEDS: Docusate Oral Soln 100 MG/10 ML UDC PO SCH ×2 (07:53→20:09)
[2020-10-08] MEDS: Aspirin Enteric Coated 81 MG Tablet PO SCH (07:53)
[2020-10-08] MEDS: Insulin LISPRO 300 UNITS/3 ML VIAL SUBQ SCH ×4 (08:13→20:09)
[2020-10-08] MEDS: GuaiFENesin/Dextromethorphan TABLET PO SCH ×2 (10:17→20:09)
[2020-10-08 18:59] LABS: Bilirubin,Urine Negative (Negative); Blood,Urine Negative (Negative); Clarity,Urine Clear (Clear); Color,Urine Yellow (Yellow); Glucose,Urine (UA) 30 mg/dL (Normal); Hyaline Casts,Urine Few per lpf (None Seen); Ketones,Urine Negative (Negative); Leukocyte Esterase,Urine Negative (Negative); Nitrite,Urine Negative (Negative); PH,Urine 5.5 pH Units (5.0-8.0); Protein,Urine Trace mg/dL (Neg-Trace); RBC,Urine 0-3 per hpf (0-3); Specific Gravity,Urine 1.024 (1.010-1.025); Squamous Epithelial Cell,Urine Few per hpf (None-Few); WBC,Urine 0-3 per hpf (0-3)
[2020-10-09] MEDS: Ipratropium/Albuterol Neb 3 ML IH SCH ×3 (03:44→11:11)
[2020-10-09] MEDS: *HR* Enoxaparin 40 MG/0.4 ML SYRINGE SQ SCH (05:20)
[2020-10-09 06:07] LABS: BUN/Creatinine Ratio 35 (6-26); Blood Urea Nitrogen 31 mg/dL (8-23); Calcium 8.3 mg/dL (8.6-10.3); Carbon Dioxide 40 mEq/L (23-29); Chloride 97 mEq/L (98-107); Glucose 76 mg/dL (70-105); Magnesium 2.3 mg/dL (1.6-2.6); Osmolality,Calculated 297 (280-300); Potassium 3.6 mEq/L (3.5-5.1); Sodium 141 mEq/L (136-145); eGFR For African Americans > 60 (> 60); eGFR For Non-African Americans > 60 (> 60)
[2020-10-09] MEDS: Insulin LISPRO 300 UNITS/3 ML VIAL SUBQ SCH ×2 (07:54→11:53)
[2020-10-09] MEDS: predniSONE 20 MG TABLET PO SCH (09:25)
[2020-10-09] MEDS: Aspirin Enteric Coated 81 MG Tablet PO SCH (09:25)
[2020-10-09] MEDS: GuaiFENesin/Dextromethorphan TABLET PO SCH (09:25)
[2020-10-09] MEDS: Furosemide 20 MG TABLET PO SCH (09:25)
[2020-10-09] MEDS: Docusate Oral Soln 100 MG/10 ML UDC PO SCH (09:25)
[2020-10-09] MEDS: *HR* Amiodarone 200 MG TABLET PO SCH (09:25)
[2020-10-09] MEDS: Nicotine 21 MG PATCH.TD24 TD SCH (09:26)
[2020-10-09] MEDS: Insulin DETEMIR 100 UNIT/ML X5UNITS SUBQ SCH (09:27)
[2020-10-09] MEDS: Budesonide/Formoterol 160/4.5 1 PUFF INH IH SCH (11:11)
[2020-10-09 11:45] VITALS: BP 126/66
== END 2020-10-09 13:50 | disposition home health service (06) | DRG 194 ==
LOC: EMEROOARM 15:16 → 3BNU 15:16 → SUATTDRO 09-27 18:00 → ICNU 09-28 10:48 → 2NNU 10-05 11:51 → 2ANU 10-07 21:30
PROVIDERS: ADMIT Internal Medicine; ATTEND Internal Medicine